=== PATIENT | male | born 1995 | race Caucasian/White ===

== ENCOUNTER 2018-05-22 09:53 | Emergency (ER) | payer SELFPAY ==
[~2018-05-22] VITALS: Ht 188 cm; Wt 70.0 kg
[2018-05-22 10:14] VITALS: BP 140/75; PULSE 85; TEMP 99
[2018-05-22] MEDS ORDERED: ZITHROMAX Z PA250 MG PO (10:43)
== END 2018-05-22 10:52 | disposition home or self-care (01) ==
LOC: COL.ER 09:53
DX: J20.9 Acute bronchitis, unspecified (principal)